=== PATIENT | female | born 1985 | race Caucasian/White ===

== ENCOUNTER → 2016-04-24 | Outpatient (CLI) | payer OTHER ==
[~2016-04-24] MED LIST: ACET50TA PO; ANUS2.5C2 TOP; DIBU1OI TOP; DIBU1OIN TOP; IBUP80TA PO; MIRA3350 PO; PRE-TAB3 PO; TUMS500C PO
--- NOTE | 2016-04-24 14:09 | REPMRS ---
Patient History The patient states she has not had a clinical breast exam in over a year. Family history of colorectal cancer in paternal grandmother. Patient states she has had bilateral breast lumpectomy, both negative Digital Mammo Screening Bilat: April 24, 2016 - Exam #: [id number] Bilateral CC and MLO view(s) were taken. Technologist: Marva Gloria, Technologist FINDINGS: The breast tissue is heterogeneously dense. This may lower the sensitivity of mammography. There is no evidence of dominant mass, architectural distortion, or clustered microcalcification typical of malignancy. ASSESSMENT: BI-RADS/ACR category 2 mammogram. Benign finding(s). Recommendation Routine screening mammogram of both breasts in 1 year (for women over age 40). This mammogram was interpreted with the aid of an FDA-approved computer-aided dectection system. Electronically Signed By: Jose Mariano MD 04/24/16 [id number]
== END ==
LOC: M RAD 13:37
PROVIDERS: ATTEND Physician Assistant Medical
DX: Z12.31 Encounter for screening mammogram for malignant neoplasm of breast (principal); R92.8 Other abnormal and inconclusive findings on diagnostic imaging of breast

== ENCOUNTER → 2016-07-06 | Outpatient (CLI) | payer OTHER ==
--- NOTE | 2016-07-07 08:43 | REP ---
Clinical: Trauma. Technique: AP, lateral, bilateral oblique views right first toe. Findings: The osseous structures and joint spaces are intact and normal. There is no evidence for acute fracture or dislocation. Surrounding soft tissues are unremarkable. No subcutaneous emphysema or radiodense foreign body. Impression: No acute fracture or dislocation. Signed by Will Estrella MD 07/07/2016 08:35 A
== END ==
LOC: M LRY 21:01
PROVIDERS: ATTEND Nurse Practitioner Family
DX: S99.921A Unspecified injury of right foot, initial encounter (principal); X58.XXXA Exposure to other specified factors, initial encounter; Y93.9 Activity, unspecified; Y92.9 Unspecified place or not applicable; Y99.8 Other external cause status
CPT/HCPCS: 73660; G0463